=== PATIENT | male | born 1950 | race Caucasian/White ===

== ENCOUNTER → 2017-03-01 | Outpatient (CLI) | payer OTHER | LOC: BMCIMAGING 15:46 | PROVIDERS: ATTEND Internal Medicine Rheumatology | DX: M46.96 Unspecified inflammatory spondylopathy, lumbar region (principal); M46.97 Unspecified inflammatory spondylopathy, lumbosacral region; M51.36 Other intervertebral disc degeneration, lumbar region; Z98.1 Arthrodesis status ==